=== PATIENT | female | born 1985 | race Caucasian/White ===

== ENCOUNTER 2017-11-27 13:25 | Emergency (ER) | payer OTHER ==
[2017-11-27] MEDS ORDERED: fentaNYL 100 MCG/2 ML VIAL IVP STA (14:17)
[2017-11-27] MEDS ORDERED: SODIUM CHLORIDE 0.9% 1,000 ML IV ONE (14:17)
[2017-11-27] MEDS ORDERED: PROMETHAZINE INJ 25 MG in SODIUM CHLORIDE 0.9% 50 ML IV STA (14:17)
--- NOTE | 2017-11-27 14:28 | ED Physician Documentation ---
PD HPI ABD PAIN - Stated complaint Stated Complaint: ABD PX,FEMALE ,BACK PX - Chief complaint Chief Complaint: Abd Pain - Additional information Additional information: 32-year-old female presents to the emergency department with sharp stabbing suprapubic pain which radiates into her bilateral pelvis and into her back. The patient's symptoms started this afternoon and are associated with nausea. The patient denies upper abdominal pain, dysuria, vaginal discharge or vaginal bleeding. Symptoms are described as moderate. No attempts at symptom management. The patient has a history of similar symptoms in the past. Review of Systems Constitutional: denies: Fever, Chills Eyes: denies: Discharge Ears: denies: Ear pain Nose: denies: Foreign Body Throat: denies: Sore throat Cardiac: denies: Chest pain / pressure Respiratory: denies: Cough GI: reports: Abdominal Pain, Nausea, Vomiting. denies: Constipation, Diarrhea : denies: Dysuria, Unable to Void, Vaginal bleeding, Irregular menses Musculoskeletal: denies: Neck pain Neurologic: denies: Generalized weakness Psychiatric: denies: Depressed Immunocompromised: denies: Chemotherapy PD PAST MEDICAL HISTORY - Allergies Allergies/Adverse Reactions: Allergies Allergy/AdvReac Type Severity Reaction Status Date / Time No Known Drug Allergies Allergy Verified 11/27/17 13:33 PD ED PE NORMAL - General General: Alert and oriented X 3. No: No acute distress - HEENT HEENT: Atraumatic, PERRL, EOMI, Ears normal, Moist mucous membranes - Neck Neck: Supple, no meningeal sign - Cardiac Cardiac: RRR, Strong equal pulses - Respiratory Respiratory: No respiratory distress - Abdomen Abdomen: Soft, Non distended. No: Non tender (Tenderness over the suprapubic region and throughout the whole lower abdomen, no rebound or peritoneal signs) - Back Back: No CVA TTP - Derm Derm: Normal color - Extremities Extremities: No deformity, Normal ROM s pain, No edema - Neuro Neuro: Alert and oriented X 3, Normal speech - Psych Psych: Normal affect Results - Vitals Vitals: Vital Signs - 24 hr 11/27/17 11/27/17 13:30 17:04 Temperature 37.5 C Heart Rate 103 H 100 Respiratory 16 18 Rate Blood Pressure 154/115 H 143/76 H O2 Saturation 100 99 Oxygen O2 Source Room air - Labs Labs: Laboratory Tests 11/27/17 11/27/17 11/27/17 14:50 14:50 14:50 WBC 9.9 RBC 4.23 Hgb 13.2 Hct 37.6 MCV 88.9 MCH 31.3 H MCHC 35.2 RDW 13.2 Plt Count 213 MPV 8.1 Neut # (Auto) 8.7 H Lymph # (Auto) 0.6 L Bartholomew # (Auto) 0.6 Eos # (Auto) 0.0 Baso # (Auto) 0.0 Absolute Nucleated RBC 0.00 Nucleated RBC % 0.0 Sodium 132 L Potassium 3.5 Chloride 100 L Carbon Dioxide 21 Anion Gap 11.0 BUN 9 Creatinine 0.8 Estimated GFR (MDRD) 82 L Glucose 108 H Calcium 9.3 Total Bilirubin 0.9 AST 24 ALT 21 Alkaline Phosphatase 43 Total Protein 8.2 Albumin 4.4 Globulin 3.8 Albumin/Globulin Ratio 1.2 Lipase 23 Urine Color LT. YELLOW Urine Clarity CLEAR Urine pH 7.5 Ur Specific Gaines 1.020 Urine Protein NEGATIVE Urine Glucose (UA) NEGATIVE Urine Ketones NEGATIVE Urine Occult Blood MODERATE H Urine Nitrite NEGATIVE Urine Bilirubin NEGATIVE Urine Urobilinogen 0.2 (NORMAL) Ur Leukocyte Esterase NEGATIVE Urine RBC 0-5 Urine WBC 0-3 Ur Squamous Epith Cells MOD Squamous H Urine Bacteria None Seen Ur Microscopic Review INDICATED Urine Culture Comments NOT INDICATED Urine HCG, Qual 11/27/17 14:50 WBC RBC Hgb Hct MCV MCH MCHC RDW Plt Count MPV Neut # (Auto) Lymph # (Auto) Bartholomew # (Auto) Eos # (Auto) Baso # (Auto) Absolute Nucleated RBC Nucleated RBC % Sodium Potassium Chloride Carbon Dioxide Anion Gap BUN Creatinine Estimated GFR (MDRD) Glucose Calcium Total Bilirubin AST ALT Alkaline Phosphatase Total Protein Albumin Globulin Albumin/Globulin Ratio Lipase Urine Color Urine Clarity Urine pH Ur Specific Gaines 1.020 Urine Protein Urine Glucose (UA) Urine Ketones Urine Occult Blood Urine Nitrite Urine Bilirubin Urine Urobilinogen Ur Leukocyte Esterase Urine RBC Urine WBC Ur Squamous Epith Cells Urine Bacteria Ur Microscopic Review Urine Culture Comments Urine HCG, Qual NEGATIVE - Rads (name of study) CT abd/pelvis Radiology: Final report received (1. No acute intra-abdominal abnormality demonstrated.2. Left-sided nephrolithiasis without hydronephrosis. 3. Status post cholecystectomy. No biliary dilation. 4. Intrauterine device in place. ) PD MEDICAL DECISION MAKING - ED course ED course: On reevaluation the patient resting comfortably and her symptoms have resolved. Given the fact that this patient has stones in her kidney and blood in her urine her symptoms today may represent a passed kidney stone. Currently, the patient is pain-free and appears appropriate for discharge and ongoing outpatient management. The patient's workup otherwise does not reveal an etiology that would necessitate admission to the hospital or acute surgical consultation. The patient appears appropriate for ongoing outpatient management. I discussed warning signs and recommended returning to the emergency department immediately for any worsening or any concerns. Departure - Departure Disposition: 01 Home, Self Care Clinical Impression: Kidney stone Abdominal pain Qualifiers: Abdominal location: unspecified location Qualified Code(s): R10.9 - Unspecified abdominal pain Condition: Good Instructions: Abdominal Pain, Kidney Stones Comments: Please follow-up with primary care. Please asked them to arrange for an outpatient referral to urology. Please return to the emergency department for worsening symptoms or any concerns
[2017-11-27 14:53] LABS: BILIRUBIN,URINE NEGATIVE (NEGATIVE); GLUCOSE, URINE (UA) NEGATIVE (NEGATIVE); KETONES,URINE (UA) NEGATIVE (NEGATIVE); LEUKOCYTE ESTERASE, URINE NEGATIVE (NEGATIVE); NITRITE,URINE NEGATIVE (NEGATIVE); OCCULT BLOOD,URINE MODERATE (NEGATIVE); PH,URINE 7.5 PH (5.0-7.5); PROTEIN,URINE NEGATIVE (NEGATIVE); UROBILINOGEN,URINE 0.2 (NORMAL) E.U./dL (NORMAL)
[2017-11-27 14:56] LABS: BASOPHILS % (AUTO) 0.2 %; EOSINOPHILS % (AUTO) 0.3 %; HGB - HEMOGLOBIN 13.2 g/dL (12.0-16.0); LYMPHOCYTES # (AUTO) 0.6 10^3/uL (1.5-3.5); LYMPHOCYTES % (AUTO) 5.8 %; MEAN CORPUSCULAR HEMOGLOBIN 31.3 pg (27.0-31.0); MEAN CORPUSCULAR HGB CONC 35.2 g/dL (32.0-36.0); MEAN CORPUSCULAR VOLUME 88.9 fL (81.0-99.0); MEAN PLATELET VOLUME 8.1 fL (7.9-10.8); MONOCYTES # (AUTO) 0.6 10^3/uL (0.0-1.0); MONOCYTES % (AUTO) 5.8 %; NEUTROPHILS # (AUTO) 8.7 10^3/uL (1.5-6.6); NEUTROPHILS % (AUTO) 87.9 %; PLT - PLATELET COUNT 213 10^3/uL (130-450); RED BLOOD COUNT 4.23 10^6/uL (4.20-5.40); RED CELL DISTRIBUTION WIDTH 13.2 % (12.0-15.0); WHITE BLOOD COUNT 9.9 x10^3/uL (4.8-10.8)
[2017-11-27 15:02] LABS: CLARITY,URINE CLEAR (CLEAR)
[2017-11-27 15:03] LABS: BACTERIA,URINE None Seen /HPF (None Seen); HCG UR QUAL NEGATIVE; RBC,URINE 0-5 /HPF (0-5); SQUAMOUS EPITHELIAL CELL,UR MOD Squamous (<= Few)
[2017-11-27 15:08] LABS: ALBUMIN 4.4 g/dL (3.2-5.5); ALBUMIN/GLOBULIN RATIO 1.2 (1.0-2.2); BILIRUBIN,TOTAL 0.9 mg/dL (0.2-1.0); CALCIUM 9.3 mg/dL (8.5-10.3); CREATININE 0.8 mg/dL (0.4-1.0); TOTAL PROTEIN 8.2 g/dL (6.7-8.2)
[2017-11-27] MEDS ORDERED: KETOROLAC 60 MG/2 ML VIAL IVP STA (15:09)
--- NOTE | 2017-11-27 15:54 | CT Report ---
Reason: left sided abdominal pain Procedure Date: 11/27/2017 Accession Number: [id number] / [id number] Procedure: CT - Abdomen/Pelvis W/O CPT Code: FULL RESULT: EXAM: CT ABDOMEN AND PELVIS (CT KUB) EXAM DATE: 11/27/2017 03:34 PM. CLINICAL HISTORY: Left-sided abdominal pain. COMPARISONS: None. TECHNIQUE: Routine axial helical CT imaging was performed through the abdomen and pelvis without IV contrast. Reconstructions: Coronal and sagittal. In accordance with CT protocol optimization, one or more of the following dose reduction techniques were utilized for this exam: automated exposure control, adjustment of mA and/or KV based on patient size, or use of iterative reconstructive technique. FINDINGS: Lung Bases: Unremarkable. Right Kidney/Ureter: No stones, hydronephrosis, or hydroureter. No perinephric fat stranding. Left Kidney/Ureter: 2 small 1-2 mm nonobstructing stones are seen in the mid and lower portion of the left kidney. There is no hydronephrosis or distal obstructive uropathy identified. No perinephric fat stranding. Other Solid Organs: Noncontrast images of the solid organs are grossly unremarkable. Gallbladder/Bile Ducts: Cholecystectomy changes are seen. There is no biliary dilation. Peritoneal Cavity: No free fluid, free air or trent adenopathy. Bowel is grossly unremarkable. The appendix is normal. Pelvic Organs: Intrauterine device is in place. No bladder stones or wall thickening. Otherwise, noncontrast images of the visualized pelvic organs are unremarkable. Vasculature: Unremarkable. Other: Diffuse degenerative changes are seen in the spine. No acute osseous abnormality is demonstrated. IMPRESSION: 1. No acute intra-abdominal abnormality demonstrated. 2. Left-sided nephrolithiasis without hydronephrosis. 3. Status post cholecystectomy. No biliary dilation. 4. Intrauterine device in place. RAD[facility]
[2017-11-27 17:04] VITALS: BP 143/76
== END 2017-11-27 17:05 | disposition home or self-care (01) ==
LOC: ED 13:25
DX: N20.0 Calculus of kidney (principal); Z97.5 Presence of (intrauterine) contraceptive device
CPT/HCPCS: 36415; 74176; 80053; 81001; 81025; 83690; 85025; 96365; 96375; 99283; 99284; J7040; 81003; 87086